=== PATIENT | male | born 1950 | race Caucasian/White ===

== ENCOUNTER 2018-03-21 07:12 | Emergency (ER) | payer SELFPAY ==
[~2018-03-21] VITALS: Ht 182.9 cm; Wt 74.8 kg
[2018-03-21 07:30] VITALS: BP 134/93
[2018-03-21] MEDS ORDERED: Ketorolac 60mg Inj IM ONE (07:30)
--- NOTE | 2018-03-21 07:34 | Emergency Room Report ---
History of Present Illness General Chief Complaint: Back Pain-No Injury Source: Patient Present Illness HPI The patient presents with increase in his low back pain. This has been happening over the last few days. There is no trauma. He feels that things are moving around in his lower back. He is in a rehabilitation facility. The last time he took opiates was 2 weeks ago. He denies any fevers, incontinence, increased numbness or weakness, dysuria, change in bowel habits, chest pain, cough, rashes amongst others. He is not on blood thinners and has no oncologic problems. He rates the pain 10/10, constant - some radiation down L leg. The spinal fusion was in the 90s. The stimulator was placed one year ago. In the past he found a cane helpful. Allergies: Coded Allergies: No Known Allergies (Unverified , 03/21/18) Patient History Past Medical History: see triage record Past Surgical History: other - Spinal fusion and nerve Social History: Reports: smoking; Denies: alcohol use, drug use Social History Narrative in rehabilitation facility Reviewed Nursing Documentation: PMH: Agreed; PSxH: Agreed Nursing Documentation-PMH Past Medical History: No History, Except For Review of Systems All Other Systems: negative except mentioned in HPI Physical Exam Vital Signs Date Time Temp Pulse Resp B/P (MAP) Pulse Ox O2 Delivery O2 Flow Rate FiO2 03/21/18 07:18 98.4 110 18 134/93 98 Room Air 98.4 Sp02 EP Interpretation: reviewed, normal General Appearance: well appearing, no apparent distress, thin Head: normocephalic, atraumatic Eyes: bilateral eye normal inspection, bilateral eye PERRL ENT: hearing grossly normal, normal voice, moist mucus membranes Neck: full range of motion, supple Respiratory: chest non-tender, lungs clear, normal breath sounds, no respiratory distress, speaking full sentences Cardiovascular #2: 2+ radial (L) Gastrointestinal: normal inspection, normal bowel sounds, non tender, scaphoid Genitourinary: no CVA tenderness Musculoskeletal: other - lumbar tenderness, paraspinous tightness, no point tenderness. Able to sit, walk and lay down with relative ease. Neurologic: alert, motor strength/tone normal, DTRs symmetric, sensory intact, normal gait, speech normal Psychiatric: mood/affect normal Skin: no rash Medical Decision Making Diagnostic Impression: Primary Impression: Back pain Qualified Codes: M54.42 - Lumbago with sciatica, left side Additional Impression: Opiate withdrawal ER Course Patient presents with increased back pain. Differential includes lumbar strain , opiate withdrawal, sciatica amongst others. There are no red flag symptoms and based on symptomatology and physical findings no imaging is indicated. He also denies any urinary symptoms. The patient will be given a shot of Toradol and also Tylenol. He states that he should not receive any opiates at this time as he is in rehabilitation. Patient improved with treatment. Discussed issue of opiate withdrawal and change in pain appreciation. Patient is stable for outpatient observation and treatment. Last Vital Signs Date Time Temp Pulse Resp B/P (MAP) Pulse Ox O2 Delivery O2 Flow Rate FiO2 03/21/18 08:39 98.4 98 18 129/88 98 Room Air 98.4 Status: improved Disposition: HOME, SELF-CARE - rehab Condition: Improved Scripts Cane (CANE) 1 Each Each EACH MC for sciatica, #1 Prov: Isma Lux M.D. 03/21/18 Acetaminophen (Tylenol) 325 Mg Tablet 650 MG ORAL Q6H PRN for Prn Pain/Headache/Temp > 101, #30 TAB 0 Refills Prov: Isma Lux M.D. 03/21/18 Ibuprofen* (MOTRIN*) 600 Mg Tablet 600 MG ORAL Q6H PRN for For Pain, #20 TAB Prov: Isma Lux M.D. 03/21/18 Isma Lux M.D. Mar 21, 2018 07:34
[2018-03-21] MEDS ORDERED: CANE1 EACH MC (08:31)
[2018-03-21] MEDS ORDERED: TYLENOL325 MG ORAL (08:31)
[2018-03-21] MEDS ORDERED: IBUPROFEN600 MG ORAL (08:31)
[2018-03-21 08:39] VITALS: BP 129/88
== END 2018-03-21 08:41 | disposition home or self-care (01) ==
LOC: EMR 07:32
DX: M54.5 Low back pain (principal); Z98.1 Arthrodesis status; F11.23 Opioid dependence with withdrawal
CPT/HCPCS: 96372; 99283

== ENCOUNTER 2018-04-26 16:28 | Emergency (ER) | payer MEDICAID ==
[~2018-04-26] VITALS: Ht 182.9 cm; Wt 75.7 kg
[~2018-04-26 16:28] MED LIST: CANE1 EACH MC; IBUPROFEN600 MG ORAL; TYLENOL325 MG ORAL
[2018-04-26] MEDS ORDERED: AMOXICILLIN500 MG ORAL (17:45)
[2018-04-26] MEDS ORDERED: PROMETHAZINE-C118 M1 ORAL (17:45)
[2018-04-26] MEDS ORDERED: ALBUTEROL SULF8.5 GM INH (17:45)
[2018-04-26] MEDS ORDERED: PREDNISONE20 MG ORAL (17:45)
[2018-04-26 18:09] VITALS: BP 123/70
--- NOTE | 2018-04-26 21:50 | Emergency Room Report ---
History of Present Illness General Chief Complaint: Upper Respiratory Illness Source: Patient Present Illness HPI 68-year-old male presents to ED complaining of cough and congestion 2 weeks. Cough is productive with yellowish phlegm. Also notes wheezing history of asthma. States he also smokes. Denies fevers or chills. Denies chest pain. Denies sick contacts or recent travel. No other aggravating relieving factors. Denies any other associated symptoms Allergies: Coded Allergies: No Known Allergies (Unverified , 03/21/18) Patient History Past Medical History: asthma Past Surgical History: none Pertinent Family History: none Social History: Reports: smoking; Denies: alcohol use, drug use Immunizations: UTD Reviewed Nursing Documentation: PMH: Agreed; PSxH: Agreed Nursing Documentation-PMH Past Medical History: No History, Except For Review of Systems All Other Systems: negative except mentioned in HPI Physical Exam Vital Signs Date Time Temp Pulse Resp B/P (MAP) Pulse Ox O2 Delivery O2 Flow Rate FiO2 04/26/18 17:09 98.0 98 18 136/88 95 Room Air 98.1 Sp02 EP Interpretation: reviewed, normal General Appearance: no apparent distress, alert, GCS 15, non-toxic Head: normocephalic, atraumatic Eyes: bilateral eye normal inspection, bilateral eye PERRL ENT: hearing grossly normal, normal pharynx, no angioedema, normal voice Neck: full range of motion, supple/symm/no masses Respiratory: chest non-tender, lungs clear, normal breath sounds, speaking full sentences Cardiovascular #1: regular rate, rhythm, no edema Cardiovascular #2: 2+ carotid (R), 2+ carotid (L), 2+ radial (R), 2+ radial (L) , 2+ dorsalis pedis (R), 2+ dorsalis pedis (L) Gastrointestinal: normal bowel sounds, non tender, soft, non-distended, no guarding, no rebound Rectal: deferred Genitourinary: normal inspection, no CVA tenderness Musculoskeletal: back normal, gait/station normal, normal range of motion, non- tender Neurologic: alert, oriented x3, responsive, motor strength/tone normal, sensory intact, speech normal Psychiatric: judgement/insight normal, memory normal, mood/affect normal, no suicidal/homicidal ideation Reflexes: 3+ bicep (R), 3+ bicep (L), 3+ tricep (R), 3+ tricep (L), 3+ knee (R) , 3+ knee (L) Skin: normal color, no rash, warm/dry, well hydrated Lymphatic: no adenopathy Medical Decision Making Diagnostic Impression: Primary Impression: Atypical pneumonia ER Course Hospital Course 68-year-old male presents ED complaining of cough x2 weeks Differential diagnoses include: URI, pharyngitis, otitis media, asthma Clinical course Patient placed on stretcher. After initial history, physical exam reveals a male in no acute distress. Bilateral TM unremarkable. No pharyngeal erythema. No tonsillar exudates. No lymphadenopathy. minimal wheezing noted. abdomen soft. patient declined breathing treatment here. However is requesting inhaler Presentation consistent with atypical pneumonia. Given presentation, i will prescribe antibiotics Diagnosis - atypical pneumonia Stable and discharged home with Rx amoxicillin, prednisone, albuterol, cough medication. Instructed to followup with PMD. Return to ED if symptoms recur or worsen Last Vital Signs Date Time Temp Pulse Resp B/P (MAP) Pulse Ox O2 Delivery O2 Flow Rate FiO2 04/26/18 18:09 98.7 94 16 123/70 96 Room Air Status: improved Disposition: HOME, SELF-CARE Condition: Stable Scripts Albuterol Sulfate* (ALBUTEROL SULFATE MDI*) 8.5 Gm Hfa.aer.ad 2 PUFF INH Q6H, #1 EA 0 Refills Prov: Mark Anthony Miller MD 04/26/18 Codeine/Promethazine Hcl* (PROMETHAZINE-CODEINE SYRUP*) 118 Ml Syrup 5 ML ORAL Q6H PRN for For Cough, #118 ML 0 Refills Prov: Mark Anthony Miller MD 04/26/18 Amoxicillin* (AMOXIL*) 500 Mg Capsule 500 MG ORAL THREE TIMES A DAY, #21 CAP Prov: Mark Anthony Miller MD 04/26/18 Prednisone* (PREDNISONE*) 20 Mg Tablet 40 MG ORAL DAILY, #10 TAB Prov: Mark Anthony Miller MD 04/26/18 Referrals: NOT CHOSEN IPA/,REFERRING (PCP) Patient Instructions: Community-Acquired Pneumonia, Adult, [id number] Mark Anthony Miller MD Apr 26, 2018 21:50
== END 2018-04-26 18:14 | disposition home or self-care (01) ==
LOC: EMR 17:20
DX: J18.9 Pneumonia, unspecified organism (principal)
CPT/HCPCS: 99284